=== PATIENT | male | born 1950 | race Caucasian/White ===

== ENCOUNTER 2021-10-31 14:17 | Emergency (ER) | payer MEDICARE, OTHER ==
[2021-10-31 14:45] VITALS: BP 118/70; PULSE 52
[2021-10-31] MEDS ORDERED: Diphtheria,Pertussis(Acell),Tetanus Vaccine 0.5 ML Syringe IM ONE (14:54)
[2021-10-31] MEDS ORDERED: Iopamidol 755 Mg/ML 100 ML Bottle IVPUSH ONE (15:01)
[2021-10-31] MEDS ORDERED: Sodium Chloride 0.9% 10 ML Syringe FLUSH ONE (15:01)
[2021-10-31] MEDS ORDERED: Bupivacaine 0.5% 10 ML SDV INJECT ONE (15:13)
[2021-10-31] MEDS ORDERED: Lidocaine 1% 10 ML MDV INJECT ONE (15:13)
[2021-10-31] MEDS ORDERED: Sodium Chloride 0.9% 100 ML IV SCH (15:15)
[2021-10-31] MEDS ORDERED: cefTRIAXone 2 GM in Sodium Chloride 0.9% 100 ML IV ONE (16:10)
== END 2021-10-31 17:20 ==
LOC: JD.ED 14:17
DX: S62.609B Fracture of unspecified phalanx of unspecified finger, initial encounter for open fracture (principal); S36.112A Contusion of liver, initial encounter; Z88.1 Allergy status to other antibiotic agents; Z88.8 Allergy status to other drugs, medicaments and biological substances; Z72.0 Tobacco use; Z23 Encounter for immunization; W22.09XA Striking against other stationary object, initial encounter
CPT/HCPCS: 73130; 74177; 90471; 90715; 96365; 99284; J0696; Q9967